=== PATIENT | female | born 1990 | race American Indian/Alaskan Native ===

== ENCOUNTER 2017-01-28 12:44 | Emergency (ER) | payer OTHER ==
[2017-01-28 12:48] VITALS: BMI 26.2
[2017-01-28 12:51] VITALS: RESP 18
[2017-01-28] MEDS ORDERED: Sodium Chloride 0.9% 1,000 ML IV ONE (13:06)
--- NOTE | 2017-01-28 13:14 | C.PDOC ---
History Of Present Illness 26 year old female with no PMHx who presents to the ER with a complaint of diffuse body aches and headache, associated with a mild cough and left ear pain since yesterday. Patient states she felt hot and cold all day yesterday and notes it has worsened today; she reports taking 1 tab of ibuprofen with no improvement. Denies recent sick contact or travel. Time Seen by Provider: 01/28/17 12:59 Chief Complaint (Nursing): Flu-like Symptoms History Per: Patient History/Exam Limitations: no limitations Onset/Duration Of Symptoms: Days Current Symptoms Are (Timing): Still Present Location Of Pain: Ear(s), Diffuse Myalgias, Headache Sick Contacts (Context): None Associated Symptoms: Chills, Cough, Myalgias Ear Symptoms: Left: Ear Pain, Right: None Recent travel outside of the [place]: No Past Medical History Reviewed: Historical Data, Nursing Documentation, Vital Signs Vital Signs: Last Vital Signs Temp 98.8 F 01/28/17 14:49 Pulse 92 H 01/28/17 14:49 Resp 18 01/28/17 14:49 BP 124/75 01/28/17 14:49 Pulse Ox 97 01/28/17 14:49 - Medical History PMH: No Chronic Diseases Surgical History: No Surg Hx Family History: States: Unknown Family Hx - Social History Hx Alcohol Use: No Hx Substance Use: No - Immunization History Hx Tetanus Toxoid Vaccination: No Hx Influenza Vaccination: No Hx Pneumococcal Vaccination: No Review Of Systems Constitutional: Positive for: Chills ENT: Positive for: Ear Pain. Negative for: Ear Discharge, Throat Pain, Throat Swelling Respiratory: Positive for: Cough Neurological: Positive for: Headache. Negative for: Dizziness Physical Exam - Physical Exam Appears: Non-toxic, Other (Uncomfortable) Skin: Normal Color, Warm, Dry Head: Atraumatic, Normacephalic Ear(s): Bilateral: Normal Oral Mucosa: Moist Throat: Erythema (Mild), No Exudate Neck: Normal, Supple Lymphatic: No Adenopathy Chest: Symmetrical, No Tenderness Cardiovascular: Rhythm Regular (Tachycardic), No Murmur Respiratory: Normal Breath Sounds, No Rales, No Rhonchi, No Wheezing Gastrointestinal/Abdominal: Soft, No Tenderness Extremity: Normal ROM (x4), No Calf Tenderness Neurological/Psych: Oriented x3, Normal Speech, Normal Cognition ED Course And Treatment - Laboratory Results Result Diagrams: 01/28/17 13:31 01/28/17 13:31 O2 Sat by Pulse Oximetry: 100 (Room air) Pulse Ox Interpretation: Normal Medical Decision Making Medical Decision Making: Plan: Blood work Urinalysis Tylenol IV fluids 254 pm pt feeling much better, myalgias resolved, mild residual headache, will give motrin and d/c. Disposition Counseled Patient/Family Regarding: Studies Performed, Diagnosis, Need For Followup - Disposition Referrals: [facility] [Outside] [facility] [Outside] Disposition: HOME/ ROUTINE Disposition Time: 15:05 Condition: IMPROVED Additional Instructions: Recommend bed rest, increased fluids for the next few days- fever and body aches may return. If they do, take 600mg of ibuprofen every 6 hours (with food) ; if fever or pain return before 6 hours, you make take 2 tablets of tylenol ( 325 mg each) every 6hours . Follow up in medical clinic. Return to ER for any worse symptoms. Instructions: Viral Syndrome (ED) Forms: [facility] (Kazakh), General Discharge Instructions - Clinical Impression Clinical Impression: Viral syndrome - Scribe Statement The provider has reviewed the documentation as recorded by the Scribe Terry Levin All medical record entries made by the Scribe were at my direction and personally dictated by me. I have reviewed the chart and agree that the record accurately reflects my personal performance of the history, physical exam, medical decision making, and the department course for this patient. I have also personally directed, reviewed, and agree with the discharge instructions and disposition.
[2017-01-28] MEDS ORDERED: Sodium Chloride 0.9% 1,000 ML ONE (13:32)
[2017-01-28 13:36] LABS: BASO # 0.1 K/uL (0.0-0.2); BASO % 0.8 % (0.0-2.0); HEMATOCRIT 34.6 % (34.0-47.0); LYMPH # 0.6 K/uL (1.0-4.3); LYMPH % 7.9 % (20.0-40.0); MEAN CELL VOLUME 86.5 fL (81.0-99.0); MEAN CORPUSCULAR HEMOGLOBIN 29.1 pg (27.0-31.0); MEAN CORPUSCULAR HGB CONC 33.6 g/dL (33.0-37.0); MEAN PLATELET VOLUME 7.5 fL (7.2-11.7); MONO # 0.7 K/uL (0.0-0.8); MONO % 8.8 % (0.0-10.0); PLATELET COUNT 298 K/uL (130-400); RED CELL DISTRIBUTION WIDTH 13.6 % (11.5-14.5); WHITE BLOOD COUNT 7.5 K/uL (4.8-10.8)
[2017-01-28 13:51] LABS: ALB/GLOB RATIO 1.1 (1.0-2.1); ALKALINE PHOSPHATASE 64 U/L (38-126); ALT/SGPT 28 U/L (9-52); AST/SGOT 19 U/L (14-36); BILIRUBIN,TOTAL 0.2 mg/dL (0.2-1.3); BLOOD UREA NITROGEN 6 mg/dL (7-17); CALCIUM 9.3 mg/dl (8.6-10.4); CARBON DIOXIDE 23 mmol/L (22-30); CHLORIDE 100 mmol/L (98-107); GFR AFRICAN-AMERICAN > 60; GLUCOSE,RANDOM 101 mg/dL (65-105); POTASSIUM 3.5 mmol/L (3.6-5.2); SODIUM 135 mmol/L (132-148); TOTAL PROTEIN 7.3 g/dL (6.3-8.3)
[2017-01-28 14:16] LABS: RBC URINE 1 /hpf (0-3); URINE BILIRUBIN NEGATIVE (NEGATIVE); URINE BLOOD NEGATIVE (NEGATIVE); URINE COLOR Yellow (YELLOW); URINE GLUCOSE (UA) NORMAL (Normal); URINE KETONE NEGATIVE (NEGATIVE); URINE LEUKOCYTE ESTERASE NEG Leu/uL (Negative); URINE PROTEIN NEGATIVE (NEGATIVE); URINE UROBILINOGEN NORMAL mg/dL (0.2-1.0); WBC URINE < 1 /hpf (0-5)
[2017-01-28 14:27] LABS: NEUTROPHIL 82 % (50-75); TOTAL CELLS COUNTED 100
[2017-01-28 14:50] VITALS: BP 124/75; PULSE 92; TEMP 98.8
[2017-01-28 15:00] VITALS: O2SAT 100
== END 2017-01-28 15:13 | disposition home or self-care (01) ==
LOC: C.ER 12:44
DX: B34.9 Viral infection, unspecified (principal)
CPT/HCPCS: 36415; 80053; 81001; 85025; 87804; 96360; 99284; J7040

== ENCOUNTER 2017-01-30 09:29 | Emergency (ER) | payer OTHER ==
[2017-01-30 09:30] VITALS: BMI 26.2
[2017-01-30 10:04] VITALS: O2SAT 100
--- NOTE | 2017-01-30 10:29 | C.PDOC ---
History Of Present Illness 26 y/o female presents to ED with complaints of rash to hand and feet, sores inside mouth associated with subjective fever for 2 days. Patient was seen at ED 2 days ago for diffuse body aches and diagnosed with viral illness and discharged home (labs normal, UA negative, Flu negative). Patient reports developing rash after being discharged. Patient denies nausea, vomiting, chest pain, sob, diarrhea or any other complaints at this time. Denies travel outside the [place] or recent travel to [facility] area. Denies hx of STDs or vaginal discharge. Time Seen by Provider: 01/30/17 10:09 Chief Complaint (Nursing): Abnormal Skin Integrity History Per: Patient History/Exam Limitations: no limitations Onset/Duration Of Symptoms: Days Current Symptoms Are (Timing): Still Present Past Medical History Reviewed: Historical Data, Nursing Documentation, Vital Signs Vital Signs: Last Vital Signs Temp 97.7 F 01/30/17 11:32 Pulse 74 01/30/17 11:32 Resp 16 01/30/17 11:32 BP 108/68 01/30/17 11:32 Pulse Ox 100 01/30/17 11:42 - Medical History PMH: No Chronic Diseases Surgical History: No Surg Hx Family History: States: No Known Family Hx - Social History Hx Alcohol Use: No Hx Substance Use: No - Immunization History Hx Tetanus Toxoid Vaccination: No Hx Influenza Vaccination: No Hx Pneumococcal Vaccination: No Review Of Systems Except As Marked, All Systems Reviewed And Found Negative. Constitutional: Positive for: Fever ENT: Positive for: Mouth Pain (sores) Cardiovascular: Negative for: Chest Pain Respiratory: Negative for: Cough, Shortness of Breath, SOB with Excertion, Wheezing Gastrointestinal: Negative for: Nausea, Vomiting, Abdominal Pain, Diarrhea, Constipation Genitourinary: Negative for: Dysuria Skin: Positive for: Rash Neurological: Negative for: Weakness, Numbness Physical Exam - Physical Exam Appears: Well, Non-toxic, No Acute Distress Skin: Warm, Dry, Rash (maculopapular blanching rash that is slightly raised to hand palms and soles) Head: Atraumatic, Normacephalic Eye(s): bilateral: Normal Inspection, PERRL, EOMI Oral Mucosa: Moist Tongue: Normal Appearing, No Swelling Lips: Normal Appearing, No Swelling Gingiva: Ulceration Throat: Erythema, No Exudate, No Drooling Neck: Supple Chest: Symmetrical Cardiovascular: Rhythm Regular, No Murmur Respiratory: Normal Breath Sounds, No Rales, No Rhonchi, No Wheezing Gastrointestinal/Abdominal: Soft, No Tenderness Back: Normal Inspection, No CVA Tenderness Extremity: Normal ROM Neurological/Psych: Oriented x3 Gait: Steady ED Course And Treatment O2 Sat by Pulse Oximetry: 100 (RA) Pulse Ox Interpretation: Normal Medical Decision Making Medical Decision Making: Presentation consistent with hand foot mouth vs viral exanthem. Strep throat test was negative. Patient is afebrile and well appearing. She was given magic mouthwash and discharged with instructions to follow-up with PMD Disposition - Disposition Disposition: HOME/ ROUTINE Disposition Time: 10:29 Condition: FAIR Additional Instructions: Use magic mouthwash every 6 hours as needed for pain. Motrin for pain. Return to ED if condition worsens. Prescriptions: Prednisone [Deltasone] 20 mg PO DAILY #4 tablet Instructions: Hand, Foot, and Mouth Disease (ED), Viral Exanthem (ED) Forms: [facility] (Mongolian), Work Excuse - Clinical Impression Clinical Impression: Rash, Viral syndrome, Viral exanthem - PA / TAB MACHINE OPERATOR / Resident Statement MD/DO has examined the patient and agrees with the treatment plan. - Scribe Statement The provider has reviewed the documentation as recorded by the Jennifer Phillips All medical record entries made by the Jessicaibcathleen were at my direction and personally dictated by me. I have reviewed the chart and agree that the record accurately reflects my personal performance of the history, physical exam, medical decision making, and the department course for this patient. I have also personally directed, reviewed, and agree with the discharge instructions and disposition.
[2017-01-30] MEDS ORDERED: Mag&Al/Simet/Diphen/Lido 237 ML KIT PO STA (11:04)
[2017-01-30 11:37] VITALS: BP 108/68; PULSE 74; RESP 16; TEMP 97.7
[2017-01-30] MEDS ORDERED: Oxycodone/Acetaminophen 5/325 mg Tab PO STA (11:39)
[2017-01-30] MEDS ORDERED: Oxycodone/Acetaminophen 5/325 mg Tab ONE (11:44)
== END 2017-01-30 11:50 | disposition home or self-care (01) ==
LOC: C.ER 09:29
DX: B09 Unspecified viral infection characterized by skin and mucous membrane lesions (principal); R21 Rash and other nonspecific skin eruption
CPT/HCPCS: 87070; 87430; 96372; 99283; J1885

== ENCOUNTER 2017-08-30 19:15 | Emergency (ER) | payer SELFPAY ==
[2017-08-30 19:16] VITALS: BMI 26.2
[2017-08-30 19:22] VITALS: O2SAT 100
[2017-08-30] MEDS ORDERED: Sodium Chloride 0.9% 1,000 ML IV ONE (19:55)
[2017-08-30] MEDS ORDERED: Sodium Chloride 0.9% 1,000 ML ONE (20:02)
[2017-08-30 20:21] LABS: BASO # 0.1 K/uL (0.0-0.2); BASO % 1.2 % (0.0-2.0); EOS % 0.8 % (0.0-4.0); HEMOGLOBIN 12.3 g/dL (11.0-16.0); LYMPH # 2.1 K/uL (1.0-4.3); LYMPH % 34.3 % (20.0-40.0); MEAN CELL VOLUME 87.6 fL (81.0-99.0); MEAN CORPUSCULAR HEMOGLOBIN 29.1 pg (27.0-31.0); MEAN CORPUSCULAR HGB CONC 33.3 g/dL (33.0-37.0); MEAN PLATELET VOLUME 7.4 fL (7.2-11.7); MONO # 0.7 K/uL (0.0-0.8); NEUT # 3.3 K/uL (1.8-7.0); NEUT % 52.7 % (50.0-75.0); NRBC % 0.1 % (0.0-2.0); RBC 4.23 Mil/uL (3.80-5.20); RED CELL DISTRIBUTION WIDTH 14.4 % (11.5-14.5); WHITE BLOOD COUNT 6.2 K/uL (4.8-10.8)
[2017-08-30 20:33] LABS: ALB/GLOB RATIO 1.1 (1.0-2.1); ALT/SGPT 15 U/L (9-52); AST/SGOT 21 U/L (14-36); BLOOD UREA NITROGEN 8 mg/dL (7-17); CALCIUM 9.2 mg/dl (8.6-10.4); GFR AFRICAN-AMERICAN > 60; GFR NON-AFRICAN AMERICAN > 60; LIPASE 65 U/L (23-300)
[2017-08-30 20:41] LABS: HCG,QUALITATIVE URINE NEGATIVE (NEGATIVE)
[2017-08-30 20:44] LABS: SQUAMOUS EPITHIAL 12 /hpf (0-5); URINE BACTERIA RARE (<OCC); URINE BILIRUBIN NEGATIVE (NEGATIVE); URINE BLOOD NEGATIVE (NEGATIVE); URINE CLARITY Hazy (Clear); URINE COLOR Yellow (YELLOW); URINE GLUCOSE (UA) NORMAL (Normal); URINE LEUKOCYTE ESTERASE NEG Leu/uL (Negative); URINE PROTEIN NEGATIVE (NEGATIVE); URINE UROBILINOGEN NORMAL mg/dL (0.2-1.0)
--- NOTE | 2017-08-30 21:02 | C.PDOC ---
History Of Present Illness Pt c/o malaise, headache, nausea/vomiting. Time Seen by Provider: 08/30/17 19:42 Chief Complaint (Nursing): Medical Clearance History Per: Patient Onset/Duration Of Symptoms: Days (1) Current Symptoms Are (Timing): Still Present Severity: Moderate Additional History Per: Prior Records Past Medical History Reviewed: Historical Data, Nursing Documentation, Vital Signs Vital Signs: Last Vital Signs Temp 98.3 F 08/30/17 19:18 Pulse 82 08/30/17 19:18 Resp 16 08/30/17 19:18 BP 127/78 08/30/17 19:18 Pulse Ox 100 08/30/17 19:18 - Medical History PMH: No Chronic Diseases Surgical History: Family History: States: Unknown Family Hx - Social History Hx Alcohol Use: No Hx Substance Use: No - Immunization History Hx Tetanus Toxoid Vaccination: No Hx Influenza Vaccination: No Hx Pneumococcal Vaccination: No Review Of Systems Except As Marked, All Systems Reviewed And Found Negative. Constitutional: Positive for: Malaise. Negative for: Fever ENT: Negative for: Throat Pain Respiratory: Negative for: Cough, Shortness of Breath Gastrointestinal: Positive for: Nausea, Vomiting. Negative for: Abdominal Pain , Diarrhea Genitourinary: Negative for: Dysuria, Vaginal Bleeding Musculoskeletal: Negative for: Neck Pain, Back Pain Skin: Negative for: Rash Neurological: Positive for: Headache. Negative for: Weakness, Numbness, Incoordination, Change in Speech, Confusion, Seizures, Altered Mental Status Physical Exam - Physical Exam Appears: Non-toxic, No Acute Distress Skin: Normal Color, Warm, Dry, No Rash Head: Atraumatic, Normacephalic Eye(s): bilateral: Normal Inspection, PERRL, EOMI Neck: Normal ROM, Supple Cardiovascular: Rhythm Regular Respiratory: Normal Breath Sounds, No Accessory Muscle Use Gastrointestinal/Abdominal: Soft, No Tenderness Back: No CVA Tenderness Extremity: Normal ROM, No Pedal Edema, No Calf Tenderness Neurological/Psych: Oriented x3, Normal Speech, Normal Cognition, Normal Motor, Normal Sensation ED Course And Treatment - Laboratory Results Result Diagrams: 08/30/17 20:16 08/30/17 20:16 Lab Interpretation: No Acute Changes Urine POC: Negative O2 Sat by Pulse Oximetry: 100 Pulse Ox Interpretation: Normal Progress Note: Symptoms resolved. Reassessment Condition: Improved Progress - Interventions Interventions:: Observation, Intravenous fluid - Medications Administered Intravenous: Antiemetic, H-2 brock - Data Reviewed Data Reviewed: Lab, Old records - Patient Status Patient status: Completely improved - Continuity of Care Discussed patient case with:: Patient, ED Nurse - Patient Plan Patient Plan: Discharge, F/U with PCP Disposition Counseled Patient/Family Regarding: Studies Performed, Diagnosis, Need For Followup, Rx Given - Disposition Referrals: [facility] [Outside] Disposition: HOME/ ROUTINE Disposition Time: 21:03 Condition: IMPROVED Additional Instructions: Drink plenty of fluids. Follow up with your doctor or in the clinic. Return to the ER if you develop worsening of symptoms or if you have any other concerns. Prescriptions: Metoclopramide [Reglan] 1 tab PO TID PRN #15 tab PRN Reason: Nausea/Vomiting Instructions: Nausea and Vomiting, Adult (DC) Forms: Gen Discharge Inst French Print Language: THAI - Clinical Impression Clinical Impression: Nausea & vomiting, Malaise
[2017-08-30 21:32] VITALS: BP 130/86; PULSE 73; RESP 18; TEMP 98.2
== END 2017-08-30 21:32 | disposition home or self-care (01) ==
LOC: C.ER 19:15
DX: R53.81 Other malaise (principal); R11.2 Nausea with vomiting, unspecified
CPT/HCPCS: 80053; 81001; 83690; 84484; 84703; 85025; 96361; 96374; 96375; 99284; J2765; J7040

== ENCOUNTER 2018-05-28 18:37 | Emergency (ER) | payer SELFPAY ==
[2018-05-28 18:37] VITALS: BMI 26.2
[2018-05-28 19:08] VITALS: BP 117/74; PULSE 76; RESP 16; TEMP 99.4; O2SAT 100
--- NOTE | 2018-05-28 19:40 | C.PDOC ---
History Of Present Illness 27 y/o female presents to the ER for evaluation of bilateral breast pain which has been present for the past 2-3 days. Patient states that she usually has pain with the onset of of her menses, she notes that she has her menses today. Patient describes the pain as strong burning sensation. She notes that she was concerned so she decided to come to the ER for evaluation.Denies having trauma, fever, chills, history of breast problems, and family history of breast cancer. Time Seen by Provider: 05/28/18 19:17 Chief Complaint (Nursing): Breast Problem History Per: Patient History/Exam Limitations: no limitations Onset/Duration Of Symptoms: Days Current Symptoms Are (Timing): Still Present Severity: Moderate Past Medical History Reviewed: Historical Data, Nursing Documentation, Vital Signs Vital Signs: Last Vital Signs Temp 99.4 F 05/28/18 19:00 Pulse 76 05/28/18 19:00 Resp 16 05/28/18 19:00 BP 117/74 05/28/18 19:00 Pulse Ox 100 05/28/18 19:00 - Medical History PMH: No Chronic Diseases Surgical History: Family History: States: No Known Family Hx - Social History Hx Alcohol Use: No Hx Substance Use: No - Immunization History Hx Tetanus Toxoid Vaccination: No Hx Influenza Vaccination: No Hx Pneumococcal Vaccination: No Review Of Systems Except As Marked, All Systems Reviewed And Found Negative. Constitutional: Negative for: Fever, Chills Musculoskeletal: Positive for: Other (bilateral breast pain) Physical Exam - Physical Exam Appears: Non-toxic, No Acute Distress Skin: Normal Color, Warm, Dry Head: Atraumatic, Normacephalic Eye(s): bilateral: Normal Inspection Nose: Normal Oral Mucosa: Moist Neck: Supple Chest: Symmetrical, No Tenderness ( bilateral breasts), Other (bilateral breasts: no erythema, no palpable mass,no skin changes, no nipple retraction, no nipple discharge) Cardiovascular: Rhythm Regular Respiratory: Normal Breath Sounds, No Rales, No Rhonchi, No Wheezing Neurological/Psych: Oriented x3, Normal Speech ED Course And Treatment O2 Sat by Pulse Oximetry: 100 (RA) Pulse Ox Interpretation: Normal Progress Note: Patient has been reassured about her symptoms. Patient has been instructed about regular self breast exam. She has been discharged and instructed to follow up with PMD. Disposition Counseled Patient/Family Regarding: Diagnosis, Need For Followup, Rx Given - Disposition Disposition: HOME/ ROUTINE Disposition Time: 19:39 Condition: STABLE Additional Instructions: Please take advil or motrin for pain Follow up with your PMD or [facility] Return to R if worse Instructions: Mastalgia (DC) Forms: [employer] (Luxembourgish) - Clinical Impression Clinical Impression: Painful breasts - PA / SENIOR BIOSTATISTICIAN/GROUP LEADER / Resident Statement MD/DO has reviewed & agrees with the documentation as recorded. - Scribe Statement The provider has reviewed the documentation as recorded by the Jennifer Orr Provider Attestation All medical record entries made by the Jennifer were at my direction and personally dictated by me. I have reviewed the chart and agree that the record accurately reflects my personal performance of the history, physical exam, medical decision making, and the department course for this patient. I have also personally directed, reviewed, and agree with the discharge instructions and disposition.
== END 2018-05-28 19:50 | disposition home or self-care (01) ==
LOC: C.ER 18:37
DX: N64.4 Mastodynia (principal)

== ENCOUNTER 2018-06-17 22:59 | Emergency (ER) | payer SELFPAY ==
[2018-06-17 22:59] VITALS: BMI 26.2
[2018-06-17 23:07] VITALS: BP 115/77; PULSE 86; RESP 20; TEMP 98.2; O2SAT 99
--- NOTE | 2018-06-18 00:03 | C.PDOC ---
History Of Present Illness 27 year old female presents to the ED for evaluation of a white-yellow colored discharge from her nipple for the past 3.5 years, after she stopped her child. Patient reports she has been experiencing a burning pain around her left areola for the past 3 weeks. She denies fever, chills. Time Seen by Provider: 06/17/18 23:43 Chief Complaint (Nursing): Breast Problem History Per: Patient History/Exam Limitations: no limitations Onset/Duration Of Symptoms: Days Current Symptoms Are (Timing): Still Present Additional History Per: Patient Past Medical History Reviewed: Historical Data, Nursing Documentation, Vital Signs Vital Signs: Last Vital Signs Temp 98.2 F 06/17/18 23:03 Pulse 86 06/17/18 23:03 Resp 20 06/17/18 23:03 BP 115/77 06/17/18 23:03 Pulse Ox 99 06/17/18 23:03 - Medical History PMH: No Chronic Diseases Surgical History: Family History: States: Unknown Family Hx - Social History Hx Alcohol Use: No Hx Substance Use: No - Immunization History Hx Tetanus Toxoid Vaccination: No Hx Influenza Vaccination: No Hx Pneumococcal Vaccination: No Review Of Systems Constitutional: Negative for: Fever, Chills Skin: Positive for: Other (left nipple discharge ) Physical Exam - Physical Exam Appears: Non-toxic, No Acute Distress Skin: Normal Color, Warm, Dry Head: Atraumatic, Normacephalic Eye(s): bilateral: Normal Inspection Oral Mucosa: Moist Neck: Supple Chest: Symmetrical, No Deformity, No Tenderness, Other (large pendulous breast with left inverted nipple. able to express scant white-yellow dicharge. no erythema, warmth, rash, palpable mass or skin abnormality. Maci Greco RN) Cardiovascular: Rhythm Regular, No Murmur Respiratory: Normal Breath Sounds, No Rales, No Rhonchi, No Wheezing Extremity: Normal ROM Neurological/Psych: Oriented x3, Normal Speech, Normal Cognition ED Course And Treatment O2 Sat by Pulse Oximetry: 99 (on RA) Pulse Ox Interpretation: Normal Medical Decision Making Medical Decision Making: Impression: 27 year old female with left nipple discharge Progress: Tylenol PO given. On reassessment, patient is resting comfortably, showing no signs of distress and reports an improvement in her symptoms. Patient is stable for discharge and is advised to follow up with her TROUBLE DISPATCHER within 1-2 days for further evaluation. Disposition - Disposition Referrals: [facility] [Outside] [facility] [Outside] [facility] [Outside] Disposition: HOME/ ROUTINE Disposition Time: 00:02 Condition: GOOD Additional Instructions: Take Tylenol for breast pain. Follow up as soon as possible at [facility] and make sure to let doctor know about nipple discharge. Instructions: Galactorrhea (DC) Forms: [employer] ([place] Islander) - Clinical Impression Clinical Impression: Nipple discharge, Breast pain, left - PA / SUPERVISOR [employer]ARM / Resident Statement MD/DO has reviewed & agrees with the documentation as recorded. - Scribe Statement The provider has reviewed the documentation as recorded by the Scribe (Sofía Basurto) All medical record entries made by the Scribe were at my direction and personally dictated by me. I have reviewed the chart and agree that the record accurately reflects my personal performance of the history, physical exam, medical decision making, and the department course for this patient. I have also personally directed, reviewed, and agree with the discharge instructions and disposition.
== END 2018-06-18 00:08 | disposition home or self-care (01) ==
LOC: C.ER 22:59
DX: N64.52 Nipple discharge (principal); N64.4 Mastodynia